=== PATIENT | male | born 1970 | race Caucasian/White ===

== ENCOUNTER → 2016-12-13 | Day surgery (SDC) | payer MEDICAID ==
[~2016-12-13] VITALS: Ht 182.9 cm; Wt 111.0 kg
[~2016-12-13] MED LIST: ALDACTONE100 MG PO; DELTASONE10 MG PO; ENULOSE UD L30 ML/EA PO; FOLIC ACID1 MG PO; KLOR-CON M2020 MEQ PO; LASIX40 MG PO; PREDNISONE20 MG PO; PROTONIX40 MG PO; VITAMIN B-150 MG PO
--- NOTE | 2016-12-13 13:12 | NUR ---
PT TO RADIOLOGY FOR PARACENTESIS AT 1005 AND RETURNS AT 1113
== END ==
LOC: GPOC 12-10 15:00 → GEND 07:48 → GPOC 15:00
PROC: 0DJ08ZZ Inspection of Upper Intestinal Tract, Via Natural or Artificial Opening Endoscopic (ICD-10-PCS; principal; 2016-12-13)
DX: K70.31 Alcoholic cirrhosis of liver with ascites (principal)
CPT/HCPCS: J2001; J7030; P9047